=== PATIENT | male | born 2000 | race Hispanic/Latino ===

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

== ENCOUNTER 2019-04-06 08:44 | Emergency (ER) | payer MEDICAID | END 2019-04-06 10:17 | disposition home or self-care (01) | LOC: EDH 08:44 | DX: H65.92 Unspecified nonsuppurative otitis media, left ear (principal) | CPT/HCPCS: 99281 ==

== ENCOUNTER 2020-02-01 13:54 | Emergency (ER) | payer MEDICAID | END 2020-02-01 15:10 | disposition home or self-care (01) | LOC: EDH 13:54 | DX: B34.9 Viral infection, unspecified (principal); Z20.828 Contact with and (suspected) exposure to other viral communicable diseases; Z72.0 Tobacco use | CPT/HCPCS: 87426; 87804 ×2; 99283; U0003 ==

== ENCOUNTER 2021-02-06 20:59 | Emergency (ER) | payer MEDICAID, OTHER ==
[~2021-02-06] VITALS: Ht 175.3 cm; Wt 83.9 kg
[2021-02-06 21:52] VITALS: BP 127/79
== END 2021-02-06 22:12 | disposition home or self-care (01) ==
LOC: EDH 20:59
DX: R51.9 Headache, unspecified (principal); R07.89 Other chest pain
CPT/HCPCS: 99281